=== PATIENT | male | born 1975 | race African-American/Black ===

== ENCOUNTER 2019-08-07 06:07 | Emergency (ER) | payer OTHER ==
[~2019-08-07] VITALS: Ht 185.4 cm; Wt 90.9 kg
[2019-08-07 08:19] VITALS: BP 139/84
== END 2019-08-07 08:28 | disposition home or self-care (01) ==
LOC: EMS 06:07
DX: S00.83XA Contusion of other part of head, initial encounter (principal); J45.909 Unspecified asthma, uncomplicated; W22.8XXA Striking against or struck by other objects, initial encounter; Y93.89 Activity, other specified; Y92.69 Other specified industrial and construction area as the place of occurrence of the external cause; Y99.0 Civilian activity done for income or pay
CPT/HCPCS: 70450

== ENCOUNTER 2020-10-29 13:53 | Emergency (ER) | payer SELFPAY ==
[~2020-10-29] VITALS: Ht 185.4 cm; Wt 90.9 kg
[2020-10-29] MEDS ORDERED: IBUP-1506 PO (13:59)
[2020-10-29] MEDS ORDERED: LIDOCAINE 5% TRANSDERMAL PATCH TD ONE (14:45)
[2020-10-29] MEDS ORDERED: IBUPROFEN 800 MG TABLET PO ONE (14:45)
[2020-10-29 16:15] VITALS: BP 131/74
== END 2020-10-29 16:17 | disposition home or self-care (01) ==
LOC: EMS 13:59
DX: S70.01XA Contusion of right hip, initial encounter (principal); V03.99XA Pedestrian with other conveyance injured in collision with car, pick-up truck or van, unspecified whether traffic or nontraffic accident, initial encounter; Y93.89 Activity, other specified; Y92.413 State road as the place of occurrence of the external cause; Y99.8 Other external cause status
CPT/HCPCS: 73502; 99283